=== PATIENT | male | born 1985 | race Caucasian/White ===

== ENCOUNTER → 2018-11-28 20:58 | Emergency (ER) | payer OTHER ==
--- NOTE | 2018-11-28 21:31 | ED ---
Adult Trauma - HPI Summary HPI Summary: Patient complains of right foot pain after taking a metal door at work. Patient works as doesn't guard. Pain is 2 lateral forefoot, rated 6/10. Patient ambulatory. Is not taking any medication for pain. Medical history is none. - History of Current Complaint Chief Complaint: EDExtremityLower Stated Complaint: FOOT INJURY AT WORK PER PT Time Seen by Provider: 11/28/18 21:27 Hx Obtained From: Patient Mechanism of Injury: Blunt Trauma Ambulatory at the Scene: Yes Onset of Pain: Immediate Onset Severity: Moderate Current Severity: Moderate Pain Intensity: 6 Pain Scale Used: 0-10 Numeric Location: Extremities Character: Aching Aggravating Factor(s): Movement Alleviating Factor(s): Nothing Associated Signs & Symptoms: Positive: Negative - Allergy/Home Medications Allergies/Adverse Reactions: Allergies Allergy/AdvReac Type Severity Reaction Status Date / Time No Known Allergies Allergy Verified 11/28/18 21:03 PMH/Surg Hx/FS Hx/Imm Hx Endocrine/Hematology History: Denies: Hx Anticoagulant Therapy Cardiovascular History: Denies: Hx Pacemaker/ICD History: Denies: Hx Dialysis Sensory History: Denies: Hx Legally Blind Opthamlomology History: Denies: Hx Eye Prosthesis EENT History: Denies: Hx Deafness Neurological History: Denies: Hx Dementia Psychiatric History: Denies: Hx Autism Infectious Disease History: No Infectious Disease History: Denies: Traveled Outside the [place] in Last 30 Days - Family History Known Family History: Positive: Non-Contributory - Social History Occupation: Employed Full-time Alcohol Use: Occasionally Hx Substance Use: No Hx Tobacco Use: No Review of Systems Constitutional: Negative Eyes: Negative ENT: Negative Cardiovascular: Negative Respiratory: Negative Gastrointestinal: Negative Genitourinary: Negative Musculoskeletal: Other Skin: Negative Neurological: Negative Psychological: Normal All Other Systems Reviewed And Are Negative: Yes Physical Exam - Summary Physical Exam Summary: No ecchymosis, erythema, swelling, deformity noted to right foot. Tenderness to palpation along lateral edge of right forefoot. PMS intact distally. Full range of motion of ankle and toes. Triage Information Reviewed: Yes Vital Signs On Initial Exam: Initial Vitals Temp Pulse Resp BP Pulse Ox 97.8 F 92 16 138/89 97 11/28/18 21:00 11/28/18 21:00 11/28/18 21:00 11/28/18 21:00 11/28/18 21:00 Vital Signs Reviewed: Yes Appearance: Positive: Well-Appearing Skin: Positive: Warm Head/Face: Positive: Normal Head/Face Inspection Eyes: Positive: Normal Neck: Positive: Supple Respiratory/Lung Sounds: Positive: Clear to Auscultation Cardiovascular: Positive: Normal Abdomen Description: Positive: Nontender Musculoskeletal: Positive: Normal Neurological: Positive: Normal Psychiatric: Positive: Normal AVPU Assessment: Alert - [place] Coma Scale Best Eye Response: 4 - Spontaneous Best Motor Response: 6 - Obeys Commands Best Verbal Response: 5 - Oriented Coma Scale Total: 15 Diagnostics - Vital Signs Vital Signs Temp Pulse Resp BP Pulse Ox 11/28/18 21:00 97.8 F 92 16 138/89 97 - Laboratory Lab Statement: Any lab studies that have been ordered have been reviewed, and results considered in the medical decision making process. Adult Trauma Course/Dx - Course Course Of Treatment: Patient complains of right foot pain after taking a metal door at work. Patient works as doesn't guard. Pain is 2 lateral forefoot, rated 6/10. Patient ambulatory. Is not taking any medication for pain. Medical history is none. Physical exam:No ecchymosis, erythema, swelling, deformity noted to right foot. Tenderness to palpation along lateral edge of right forefoot. PMS intact distally. Full range of motion of ankle and toes. Vital signs within normal limits. X-ray negative for fracture on right foot. - Diagnoses Provider Diagnoses: Foot pain, right Discharge - Sign-Out/Discharge Documenting (check all that apply): Patient Departure Patient Received Moderate/Deep Sedation with Procedure: No - Discharge Plan Condition: Stable Disposition: HOME Patient Education Materials: Foot Sprain (ED) Referrals: Casey Raphael PA [Primary Care Provider] - Additional Instructions: Rest, ibuprofen and ice for right foot pain. If symptoms do not improve in a few days follow-up with Orthopedoics Dr. Anderson for further evaluation. Return to the ED for any new or worsening symptoms. - Billing Disposition and Condition Condition: STABLE Disposition: Home
[2018-11-28 23:01] VITALS: BP 134/86
== END | disposition home or self-care (01) ==
LOC: ED 20:58
DX: M79.671 Pain in right foot (principal); W22.8XXA Striking against or struck by other objects, initial encounter; Y92.89 Other specified places as the place of occurrence of the external cause; Y99.0 Civilian activity done for income or pay
CPT/HCPCS: 99281

== ENCOUNTER 2019-06-02 19:11 | Emergency (ER) | payer SELFPAY ==
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
[2019-06-02 20:12] LABS: ABS Basophils 0.1 10^3/ul (0-0.2); ABS Eosinophils 0.1 10^3/ul (0-0.6); ABS Monocytes 0.5 10^3/ul (0-0.8); ABS Neutrophils 4.6 10^3/ul (1.5-7.7); Eosinophil % 1.6 %; Hematocrit 43 % (42-52); Hemoglobin 14.6 g/dL (14.0-18.0); Lymphocyte % 27.2 %; Mean Corpuscular HGB Conc 34 g/dL (31-36); Mean Corpuscular Hemoglobin 31 pg (27-31); Mean Corpuscular Volume 92 fL (80-94); Mean Platelet Volume 7.6 fL (7.4-10.4); Nucleated Red Blood Cells % 0.1; Platelet Count 313 10^3/uL (150-450); Red Blood Count 4.68 10^6 /uL (4.18-5.48); Red Cell Distribution Width 13 % (10-15); White Blood Count 7.2 10^3/uL (3.5-10.8)
[2019-06-02 20:34] LABS: Albumin 4.2 g/dL (3.2-5.2); Albumin/Globulin Ratio 1.3 (1-3); Calcium 9.6 mg/dL (8.6-10.3); EGFR African American 111.8 (>60); EGFR Non-African American 92.4 (>60); Globulin 3.2 g/dL (2-4); Potassium 3.6 mmol/L (3.5-5.0); Total Bilirubin 0.3 mg/dL (0.2-1.0); Total Protein 7.4 g/dL (6.4-8.9)
[2019-06-02] MEDS ORDERED: O ndansetron ODT 4MG 5TAB PRPK 4 MG PAK PO ONE (20:51)
[2019-06-02] MEDS ORDERED: Tenofovir/Emtricitab 200/300 * TAB PO ONE ×2 (20:52→21:30)
[2019-06-02] MEDS ORDERED: Raltegravir* 400 MG TAB PO ONE ×2 (20:52→21:30)
[2019-06-02 21:10] LABS: Hepatitis B Surface Antigen Nonreactive (Nonreactive)
[2019-06-02 21:11] LABS: HIV 4th Generation Nonreactive (Nonreactive)
[2019-06-02 21:27] LABS: Hepatitis B Surface Ab Not Immune (Immune)
[2019-06-02 21:28] LABS: Hepatitis C Antibody Negative (Negative)
[2019-06-02] MEDS ORDERED: Ondansetron ODT TAB* 4 MG PO ONE (21:30)
[2019-06-02 22:28] VITALS: BP 123/81
== END 2019-06-02 22:25 | disposition home or self-care (01) ==
LOC: ED 19:11
DX: Z77.21 Contact with and (suspected) exposure to potentially hazardous body fluids (principal); F17.200 Nicotine dependence, unspecified, uncomplicated
CPT/HCPCS: 36415; 80053; 85025; 86706; 86803; 87340; 87389; 99282; A9270-GY